=== PATIENT | female | born 1995 | race Hispanic/Latino ===

== ENCOUNTER 2020-05-01 18:26 | Emergency (ER) | payer SELFPAY ==
[2020-05-01] MEDS ORDERED: Lidocaine 1% (PF) 30 ML VIAL ONE (20:16)
[2020-05-01] MEDS ORDERED: Bacitracin 1 PK ONE (20:46)
== END 2020-05-01 20:55 | disposition home or self-care (01) ==
LOC: ERS 18:26
DX: S61.411A Laceration without foreign body of right hand, initial encounter (principal); W26.0XXA Contact with knife, initial encounter
CPT/HCPCS: 12002; J2001